=== PATIENT | female | born 1990 | race Caucasian/White ===

== ENCOUNTER 2018-04-30 17:33 | Emergency (ER) | payer MEDICAID ==
[2018-04-30 17:44] VITALS: BP 158/81
[2018-04-30] MEDS ORDERED: predniSONE 20 MG Tab PO ONE (17:45)
--- NOTE | 2018-04-30 17:47 | EDM.PDOC ---
ED HPI GENERAL MEDICAL PROBLEM - General Chief Complaint: Respiratory Problem Stated Complaint: DIFFICULTY BREATHING Time Seen by Provider: 04/30/18 17:35 Source of Information: Reports: Patient History Limitations: Reports: No Limitations - History of Present Illness INITIAL COMMENTS - FREE TEXT/NARRATIVE: History of present illness: []Patient states she felt that her lungs were inflamed yesterday and today at work progressively became more short of breath with cough. Patient also complains of mild sore throat. She states she was about to use her son's albuterol but decided to come to the ER for evaluation. Patient has had pneumonia when she was a child and was seen here 2 years ago diagnosed with pneumonitis. She denies any nausea, vomiting, diarrhea and has not had a fever. She is currently not taking any meds. Review of systems: As per history of present illness and below otherwise all systems reviewed and negative. Past medical history: As per history of present illness and as reviewed below otherwise noncontributory. Surgical history: As per history of present illness and as reviewed below otherwise noncontributory. Social history: No reported history of drug or alcohol abuse. Family history: As per history of present illness and as reviewed below otherwise noncontributory. Physical exam: General: Well developed, well nourished in no respiratory distress HEENT: Atraumatic, normocephalic, pupils reactive, negative for conjunctival pallor or scleral icterus, mucous membranes moist, throat clear, neck supple, nontender, trachea midline. Lungs: Clear to auscultation, breath sounds equal bilaterally, chest nontender. No accessory muscle use lungs are clear no wheezing noted Heart: S1S2, regular, negative for clicks, rubs, or JVD. Abdomen: Soft, nondistended, nontender. Negative for masses or hepatosplenomegaly. Negative for costovertebral tenderness. Pelvis: Stable nontender. Genitourinary: Deferred. Rectal: Deferred. Extremities: Atraumatic, negative for cords or calf pain. Neurovascular unremarkable. Neuro: Awake, alert, oriented. Cranial nerves II through XII unremarkable. Cerebellum unremarkable. Motor and sensory unremarkable throughout. Exam nonfocal. Skin:warm and dry Diagnostics: Chest x-ray negative for pneumonia Therapeutics: Prednisone ED Course: Unremarkable Impression: Bronchitis Prescriptions: Prednisone, albuterol inhaler, amoxicillin Plan: Primary care return if symptoms worsen or change. Definitive disposition and diagnosis as appropriate pending reevaluation and review of above. chest Pain Score (Numeric/FACES): 7 - Related Data Allergies Allergy/AdvReac Type Severity Reaction Status Date / Time unknown medication Allergy Rash Uncoded 04/30/18 17:39 Home Meds: Home Meds Albuterol [Ventolin HFA] 2 puff INH Q4HR PRN #1 inhaler 04/30/18 [Rx] Amoxicillin 500 mg PO TID #21 capsule 04/30/18 [Rx] predniSONE [Prednisone] 20 mg PO DAILY #5 tablet 04/30/18 [Rx] Past Medical History - Past Health History Medical/Surgical History: Denies Medical/Surgical History ED ROS GENERAL - Review of Systems Review Of Systems: ROS reveals no pertinent complaints other than HPI. ED EXAM, GENERAL - Physical Exam Exam: See Below (See history of present illness) Course - Vital Signs Last Recorded V/S: Last Vital Signs Temp 97.2 F 04/30/18 17:40 Pulse 98 04/30/18 17:40 Resp 24 H 04/30/18 17:40 BP 158/81 H 04/30/18 17:40 Pulse Ox 99 04/30/18 17:40 - Orders/Labs/Meds Orders: Active Orders 24 hr Category Date Time Status Chest 2V [CR] Stat Exams 04/30/18 17:43 Ordered Meds: Medications Discontinued Medications Generic Name Dose Route Start Last Admin Trade Name Freq PRN Reason Stop Dose Admin Prednisone 60 mg 04/30/18 17:45 Prednisone PO 04/30/18 17:46 ONETIME ONE Departure - Departure Time of Disposition: 18:06 Disposition: Home, Self-Care 01 Condition: Good Clinical Impression: Acute bronchitis Qualifiers: Bronchitis organism: unspecified organism Qualified Code(s): J20.9 - Acute bronchitis, unspecified - Discharge Information *PRESCRIPTION DRUG MONITORING PROGRAM REVIEWED*: No *COPY OF PRESCRIPTION DRUG MONITORING REPORT IN PATIENT LEONEL: No Prescriptions: Albuterol [Ventolin HFA] 2 puff INH Q4HR PRN #1 inhaler PRN Reason: Shortness Of Breath Amoxicillin 500 mg PO TID #21 capsule predniSONE [Prednisone] 20 mg PO DAILY #5 tablet Referrals: PCP,None [Primary Care Provider] - Forms: ED Department Discharge Additional Instructions: The following information is given to patients seen in the emergency department who are being discharged to home. This information is to outline your options for follow-up care. We provide all patients seen in our emergency department with a follow-up referral. The need for follow-up, as well as the timing and circumstances, are variable depending upon the specifics of your emergency department visit. If you don't have a primary care physician on staff, we will provide you with a referral. We always advise you to contact your personal physician following an emergency department visit to inform them of the circumstance of the visit and for follow-up with them and/or the need for any referrals to a consulting specialist. The emergency department will also refer you to a specialist when appropriate. This referral assures that you have the opportunity for follow-up care with a specialist. All of these measure are taken in an effort to provide you with optimal care, which includes your follow-up. Under all circumstances we always encourage you to contact your private physician who remains a resource for coordinating your care. When calling for follow-up care, please make the office aware that this follow-up is from your recent emergency room visit. If for any reason you are refused follow-up, please contact the [facility] Emergency Department at and asked to speak to the emergency department charge nurse. [facility] [address] [place], [place] [id number] - My Orders Last 24 Hours: My Active Orders 04/30/18 17:43 Chest 2V [CR] Stat - Assessment/Plan Last 24 Hours: My Active Orders 04/30/18 17:43 Chest 2V [CR] Stat
--- NOTE | 2018-05-01 10:42 | CR ---
EXAM DATE: 04/30/18 PATIENT'S AGE: 28 Patient: TAO MARRERO Facility: [place] [place] Site . Site : 1988 Study: XRay Chest [id number] 6:03:58 PM Ordering Physician: Rey Paulino Final Report: Indication: Cough x1 day. Technique: PA and lateral views the chest were obtained. Comparison: October 12, 2014. Findings: The heart is normal in size. The lungs are clear. No infiltrate, pleural effusion, or pneumothorax identified. Impression: No acute cardiopulmonary process. Dictated by Isi Lopez MD @ Apr 30 2018 6:04PM (Electronic Signature) Report Signed by Proxy. ALISSA
== END 2018-04-30 18:18 | disposition home or self-care (01) ==
LOC: MW.ED 17:33
DX: J20.9 Acute bronchitis, unspecified (principal)
CPT/HCPCS: 71046; 99284; A9270; 99282

== ENCOUNTER 2019-02-12 12:26 | Emergency (ER) | payer MEDICAID ==
--- NOTE | 2019-02-12 12:34 | EDM.PDOC ---
ED HPI GENERAL MEDICAL PROBLEM - General Chief Complaint: Flank Pain Stated Complaint: LEFT SIDE PAIN Time Seen by Provider: 02/12/19 12:33 Source of Information: Reports: Patient History Limitations: Reports: No Limitations - History of Present Illness INITIAL COMMENTS - FREE TEXT/NARRATIVE: HISTORY AND PHYSICAL: History of present illness: Patient is a 28-year-old female presents to the ED with complaint of left-sided abdominal pain. States it began a few days ago with left flank pain now radiating to her left lower quadrant. She reports she had some nausea and vomiting yesterday. She states that she is having to urinate more often but denies any dysuria or hematuria. She denies any fevers, chills, diarrhea, constipation. She had her IUD removed the beginning of December and LMP the beginning of January but uncertain of exact date. Review of systems: As per history of present illness and below otherwise all systems reviewed and negative. Past medical history: As per history of present illness and as reviewed below otherwise noncontributory. Surgical history: As per history of present illness and as reviewed below otherwise noncontributory. Social history: No reported history of drug or alcohol abuse. Family history: As per history of present illness and as reviewed below otherwise noncontributory. Physical exam: General: Patient sitting comfortably in no acute distress and nontoxic appearing HEENT: Atraumatic, normocephalic, pupils reactive, negative for conjunctival pallor or scleral icterus, mucous membranes moist, throat clear, neck supple, nontender, trachea midline. No meningeal signs. Lungs: Clear to auscultation, breath sounds equal bilaterally, chest nontender. Heart: S1S2, regular, negative for clicks, rubs, or overt murmur. Abdomen: Suprapubic and left lower quadrant tenderness to palpation. Soft, nondistended. Negative for masses or hepatosplenomegaly. Left costovertebral tenderness. No rigidity, rebound, guarding. Pelvis: Stable nontender. Genitourinary: Deferred. Rectal: Deferred. Extremities: Atraumatic, negative for cords or calf pain. Neurovascular unremarkable. Neuro: Awake, alert, oriented. Cranial nerves II through XII unremarkable. Cerebellum unremarkable. Motor and sensory unremarkable throughout. Exam nonfocal. Notes: Diagnostics: UA, UC, urine hCG Therapeutics: None Prescriptions: Cipro Impression: UTI Plan: 1. Take antibiotic as instructed. Plenty of fluids as discussed. 2. Follow up with primary care provider 3. Return to ED as needed as discussed Definitive disposition and diagnosis as appropriate pending reevaluation and review of above. Left Flank Pain Score (Numeric/FACES): 10 - Related Data Allergies Allergy/AdvReac Type Severity Reaction Status Date / Time No Known Allergies Allergy Verified 02/12/19 12:31 Home Meds: Home Meds Acetaminophen 1,000 mg PO ASDIRECTED 02/12/19 [History] Acetaminophn/Pyril Mal/Caffein [Midol Caplet] 1 each PO ASDIRECTED 02/12/19 [ History] Ciprofloxacin HCl [Cipro] 500 mg PO BID 10 Days #20 tablet 02/12/19 [Rx] Past Medical History - Past Health History Medical/Surgical History: Denies Medical/Surgical History HEENT History: Reports: Impaired Vision Other HEENT History: wears glasses Cardiovascular History: Reports: None Respiratory History: Reports: Pneumonia, Recurrent Genitourinary History: Reports: None 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: , 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 ED EXAM, GI/ABD - Physical Exam Exam: See Below (see dictation) Course - Vital Signs Last Recorded V/S: Last Vital Signs Temp 98.3 F 02/12/19 12:32 Pulse 87 02/12/19 12:32 Resp 19 02/12/19 12:32 BP 138/79 02/12/19 12:32 Pulse Ox 95 02/12/19 12:32 - Orders/Labs/Meds Orders: Active Orders 24 hr Category Date Time Status CULTURE URINE [RM] Stat Lab 02/12/19 12:41 Received Labs: Laboratory Tests 02/12/19 02/12/19 Range/Units 12:41 12:41 Urine Color YELLOW Urine Appearance CLOUDY Urine pH 6.0 (5.0-8.0) Ur Specific [place] 1.015 (1.001-1.035) Urine Protein 100 H (NEGATIVE) mg/dL Urine Glucose (UA) NEGATIVE (NEGATIVE) mg/dL Urine Ketones >=80 (NEGATIVE) mg/dL Urine Occult Blood MODERATE H (NEGATIVE) Urine Nitrite POSITIVE H (NEGATIVE) Urine Bilirubin NEGATIVE (NEGATIVE) Urine Urobilinogen 0.2 (<2.0) EU/dL Ur Leukocyte Esterase LARGE H (NEGATIVE) Urine RBC 0-3 (0-2/HPF) Urine WBC TO NUMEROUS TO COUNT H (0-5/HPF) Ur Epithelial Cells FEW (NONE-FEW) Urine Bacteria RARE (NEGATIVE) Urine Mucus LIGHT (NONE-MOD) Urine HCG, Qual NEGATIVE (NEGATIVE) Departure - Departure Time of Disposition: 13:27 Disposition: Home, Self-Care 01 Condition: Good Clinical Impression: UTI (urinary tract infection) - Discharge Information Prescriptions: Ciprofloxacin HCl [Cipro] 500 mg PO BID 10 Days #20 tablet Referrals: PCP,None [Primary Care Provider] - Forms: ED Department Discharge Additional Instructions: The following information is given to patients seen in the emergency department who are being discharged to home. This information is to outline your options for follow-up care. We provide all patients seen in our emergency department with a follow-up referral. The need for follow-up, as well as the timing and circumstances, are variable depending upon the specifics of your emergency department visit. If you don't have a primary care physician on staff, we will provide you with a referral. We always advise you to contact your personal physician following an emergency department visit to inform them of the circumstance of the visit and for follow-up with them and/or the need for any referrals to a consulting specialist. The emergency department will also refer you to a specialist when appropriate. This referral assures that you have the opportunity for follow-up care with a specialist. All of these measure are taken in an effort to provide you with optimal care, which includes your follow-up. Under all circumstances we always encourage you to contact your private physician who remains a resource for coordinating your care. When calling for follow-up care, please make the office aware that this follow-up is from your recent emergency room visit. If for any reason you are refused follow-up, please contact the [facility] Emergency Department at and asked to speak to the emergency department charge nurse. [facility] [address] [place] [id number] 1. Take antibiotic as instructed. Plenty of fluids as discussed. 2. Follow up with primary care provider 3. Return to ED as needed as discussed - My Orders Last 24 Hours: My Active Orders 02/12/19 12:41 CULTURE URINE [RM] Stat - Assessment/Plan Last 24 Hours: My Active Orders 02/12/19 12:41 CULTURE URINE [RM] Stat
[2019-02-12 13:51] VITALS: BP 148/69
== END 2019-02-12 13:45 | disposition home or self-care (01) ==
LOC: MW.ED 12:26
DX: N39.0 Urinary tract infection, site not specified (principal); Z79.899 Other long term (current) drug therapy
CPT/HCPCS: 81001; 81025; 87086; 87088; 87186; 99284

== ENCOUNTER 2019-04-11 13:31 | Emergency (ER) | payer MEDICAID ==
[2019-04-11 13:41] VITALS: BP 145/69; PULSE 71
--- NOTE | 2019-04-11 13:47 | EDM.PDOC ---
ED HPI GENERAL MEDICAL PROBLEM - General Chief Complaint: ENT Problem Stated Complaint: SICK--EAR INFECTION, COUGH Time Seen by Provider: 04/11/19 13:46 Source of Information: Reports: Patient History Limitations: Reports: No Limitations - History of Present Illness INITIAL COMMENTS - FREE TEXT/NARRATIVE: HISTORY AND PHYSICAL: History of present illness: Patient is a 28-year-old female presents to the ED with complaint of ear pain, cough and possible UTI. She states she has had a cough and wheezing x 1 week. Ear pain started a couple of days ago. Denies fevers, chills, nausea, vomiting, abdominal pain, back pain, shortness of breath. She states she had some dysuria but has been taking azo and it resolved. Review of systems: As per history of present illness and below otherwise all systems reviewed and negative. Past medical history: As per history of present illness and as reviewed below otherwise noncontributory. Surgical history: As per history of present illness and as reviewed below otherwise noncontributory. Social history: No reported history of drug or alcohol abuse. Family history: As per history of present illness and as reviewed below otherwise noncontributory. Physical exam: General: Patient sitting comfortably in no acute distress and nontoxic appearing HEENT: Left TM is erythematous and bulging with loss of light reflex and bony landmarks. Atraumatic, normocephalic, pupils reactive, negative for conjunctival pallor or scleral icterus, mucous membranes moist, throat clear, neck supple, nontender, trachea midline. No meningeal signs. Lungs: Clear to auscultation, breath sounds equal bilaterally, chest nontender. Heart: S1S2, regular, negative for clicks, rubs, or overt murmur. Abdomen: Soft, nondistended, nontender. Negative for masses or hepatosplenomegaly. Negative for costovertebral tenderness. No rigidity, rebound , guarding. Pelvis: Stable nontender. Genitourinary: Deferred. Rectal: Deferred. Extremities: Atraumatic, negative for cords or calf pain. Neurovascular unremarkable. Neuro: Awake, alert, oriented. Cranial nerves II through XII unremarkable. Cerebellum unremarkable. Motor and sensory unremarkable throughout. Exam nonfocal. Notes: Diagnostics: CXR, UA Therapeutics: [] Prescriptions: Ventolin inhaler Augmentin Impression: Acute bronchitis, left otitis media Plan: Take medications as instructed Follow up with primary care provider Return to ED as needed as discussed Definitive disposition and diagnosis as appropriate pending reevaluation and review of above. Left Ear Pain Score (Numeric/FACES): 0 - Related Data Allergies Allergy/AdvReac Type Severity Reaction Status Date / Time No Known Allergies Allergy Verified 02/12/19 12:31 Home Meds: Home Meds Albuterol [Ventolin HFA] 1 puff INH Q4H #1 inhaler 04/11/19 [Rx] Amoxicillin/Potassium Clav [Augmentin 875-125 Tablet] 1 each PO BID 7 Days #14 tablet 04/11/19 [Rx] Past Medical History - Past Health History Medical/Surgical History: Denies Medical/Surgical History HEENT History: Reports: Impaired Vision Other HEENT History: wears glasses Cardiovascular History: Reports: None Respiratory History: Reports: Pneumonia, Recurrent Genitourinary History: Reports: None 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: , 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 Musculoskeletal History: Reports: None Neurological History: Reports: None Psychiatric History: Reports: None Endocrine/Metabolic History: Reports: None Dermatologic History: Reports: Eczema - Infectious Disease History Infectious Disease History: Reports: Chicken Pox - Past Surgical History HEENT Surgical History: Reports: Adenoidectomy, Tonsillectomy GI Surgical History: Reports: Cholecystectomy Social & Family History - Family History Family Medical History: Noncontributory - Tobacco Use Smoking Status *Q: Current Every Day Smoker Years of Tobacco use: 10 Packs/Tins Daily: 0.5 - Caffeine Use Caffeine Use: Reports: Coffee, Energy Drinks, Soda, Tea - Recreational Drug Use Recreational Drug Use: No ED ROS ENT - Review of Systems Review Of Systems: ROS reveals no pertinent complaints other than HPI. ED EXAM, ENT - Physical Exam Exam: See Below (see dictation) Course - Vital Signs Last Recorded V/S: Last Vital Signs Temp 96.0 F 04/11/19 13:39 Pulse 71 04/11/19 13:39 Resp 18 04/11/19 13:39 BP 145/69 H 04/11/19 13:39 Pulse Ox 96 04/11/19 13:39 - Orders/Labs/Meds Labs: Laboratory Tests 04/11/19 04/11/19 Range/Units 13:42 13:45 Urine Color YELLOW Urine Appearance SLT CLOUDY Urine pH 5.5 (5.0-8.0) Ur Specific [place] >= 1.030 (1.001-1.035) Urine Protein NEGATIVE (NEGATIVE) mg/dL Urine Glucose (UA) NEGATIVE (NEGATIVE) mg/dL Urine Ketones NEGATIVE (NEGATIVE) mg/dL Urine Occult Blood NEGATIVE (NEGATIVE) Urine Nitrite NEGATIVE (NEGATIVE) Urine Bilirubin SMALL H (NEGATIVE) Urine Ictotest NEGATIVE Urine Urobilinogen 0.2 (<2.0) EU/dL Ur Leukocyte Esterase NEGATIVE (NEGATIVE) Urine HCG, Qual NEGATIVE (NEGATIVE) Departure - Departure Time of Disposition: 15:23 Disposition: Home, Self-Care 01 Condition: Good Clinical Impression: Left otitis media Acute bronchitis Qualifiers: Bronchitis organism: unspecified organism Qualified Code(s): J20.9 - Acute bronchitis, unspecified - Discharge Information Prescriptions: Albuterol [Ventolin HFA] 1 puff INH Q4H #1 inhaler Amoxicillin/Potassium Clav [Augmentin 875-125 Tablet] 1 each PO BID 7 Days #14 tablet Instructions: Otitis Media, Adult, [id number], Acute Bronchitis, Adult, Easy- to-Read Referrals: Cheo Thurston MD [Primary Care Provider] - Forms: ED Department Discharge Additional Instructions: The following information is given to patients seen in the emergency department who are being discharged to home. This information is to outline your options for follow-up care. We provide all patients seen in our emergency department with a follow-up referral. The need for follow-up, as well as the timing and circumstances, are variable depending upon the specifics of your emergency department visit. If you don't have a primary care physician on staff, we will provide you with a referral. We always advise you to contact your personal physician following an emergency department visit to inform them of the circumstance of the visit and for follow-up with them and/or the need for any referrals to a consulting specialist. The emergency department will also refer you to a specialist when appropriate. This referral assures that you have the opportunity for follow-up care with a specialist. All of these measure are taken in an effort to provide you with optimal care, which includes your follow-up. Under all circumstances we always encourage you to contact your private physician who remains a resource for coordinating your care. When calling for follow-up care, please make the office aware that this follow-up is from your recent emergency room visit. If for any reason you are refused follow-up, please contact the [facility] Emergency Department at and asked to speak to the emergency department charge nurse. [facility] [address] [place] [id number] [id number] Take medications as instructed Follow up with primary care provider Return to ED as needed as discussed
--- NOTE | 2019-04-11 15:19 | CR ---
Shortness of breath Portable chest Comparison chest x-ray 04/30/2018 Findings: Normal cardiac mediastinal silhouette. No acute airspace or interstitial process. No effusion or pneumothorax. Dictated by Nan Blum MD @ Apr 11 2019 3:16PM Signed by Dr. Nan Blum @ Apr 11 2019 3:18PM
== END 2019-04-11 16:44 | disposition home or self-care (01) ==
LOC: MW.ED 13:31
DX: J20.9 Acute bronchitis, unspecified (principal); H66.92 Otitis media, unspecified, left ear; F17.210 Nicotine dependence, cigarettes, uncomplicated; Z98.890 Other specified postprocedural states
CPT/HCPCS: 71045; 71045-26; 81003; 81025; 99282; 99283-25

== ENCOUNTER 2020-01-18 01:04 | Inpatient (IN) | payer MEDICAID ==
[2020-01-18] MEDS ORDERED: Sodium Chloride 0.9% 10 ML SDV IV PRN (17:43)
[2020-01-18] MEDS ORDERED: Misoprostol 200 MCG Tab PO PRN (17:43)
[2020-01-18] MEDS ORDERED: Tranexamic Acid 1,000 MG in Sodium Chloride 0.9% 100 ML IV PRN (17:43)
[2020-01-18] MEDS ORDERED: Sodium Chloride 0.9% 2.5 ML Syringe FLUSH PRN (17:43)
[2020-01-18] MEDS ORDERED: Water For Irrigation,Sterile 1,000 ML Container IRR PRN (17:43)
[2020-01-18] MEDS ORDERED: Methylergonovine 0.2 MG/1 ML Amp IM PRN (17:43)
[2020-01-18] MEDS ORDERED: Lidocaine 1% 50 ML MDV INJECT PRN (17:43)
[2020-01-18] MEDS ORDERED: Ondansetron 4 MG/2 ML SDV IVPUSH PRN (17:43)
[2020-01-18] MEDS ORDERED: Sodium Chloride 0.9% 10 ML Syringe FLUSH PRN (17:43)
[2020-01-18] MEDS ORDERED: Carboprost Tromethamine 250 MCG/1 ML Amp IM PRN (17:43)
[2020-01-18] MEDS ORDERED: Butorphanol 1 MG/ML SDV IVPUSH PRN (17:43)
[2020-01-18] MEDS ORDERED: Nalbuphine 10 MG/1 ML Vial IVPUSH PRN (17:43)
[2020-01-18] MEDS ORDERED: Oxytocin/0.9 % Sodium Chloride 30 UNIT/500 ML BAG IV SCH ×2 (17:45→18:45)
--- NOTE | 2020-01-18 17:46 | US ---
Limited obstetrical ultrasound: Multiple real-time images were obtained transabdominally. presentation: Cephalic Placenta: Anterior and to the right side Amniotic fluid: DENNIS 3.37 cm compatible with ruptured amniotic sac Impression: 1. Cephalic presentation. Diagnostic code #1 Study was dictated in MDT
--- NOTE | 2020-01-18 18:04 | PCM.LDHP ---
L&D History of Present Illness - General Date of Service: 01/18/20 Admit Problem/Dx: Patient Status Order with Admit Dx/Problem 01/18/20 15:40 Patient Status [ADT] Routine 01/18/20 17:44 Patient Status [ADT] Routine Admission Diagnosis/Problem Admission Diagnosis/Problem - planned 01/18/20 18:01 presenting with complaints of leaking fluid; amnisure positive; SVE 4 cm/90%/-3, soft, posterior per nurse report; A+, rubella immune, GBS negative; will admit for labor Source of Information: Patient History Limitations: Reports: No Limitations - Related Data Allergies/Adverse Reactions: Allergies Allergy/AdvReac Type Severity Reaction Status Date / Time No Known Allergies Allergy Verified 02/12/19 12:31 Home Medications: Home Meds Albuterol [Ventolin HFA] 1 puff INH Q4H #1 inhaler 04/11/19 [Rx] Amoxicillin/Potassium Clav [Augmentin 875-125 Tablet] 1 each PO BID 7 Days #14 tablet 04/11/19 [Rx] Past Medical History - Past Health History Medical/Surgical History: Denies Medical/Surgical History HEENT History: Reports: Impaired Vision Other HEENT History: wears glasses Cardiovascular History: Reports: None Respiratory History: Reports: Pneumonia, Recurrent Genitourinary History: Reports: None 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: , 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 Musculoskeletal History: Reports: None Neurological History: Reports: None Psychiatric History: Reports: None Endocrine/Metabolic History: Reports: None Dermatologic History: Reports: Eczema - Infectious Disease History Infectious Disease History: Reports: Chicken Pox - Past Surgical History HEENT Surgical History: Reports: Adenoidectomy, Tonsillectomy GI Surgical History: Reports: Cholecystectomy Social & Family History - Family History Family Medical History: Noncontributory - Caffeine Use Caffeine Use: Reports: Coffee, Energy Drinks, Soda, Tea H&P Review of Systems - Review of Systems: Review Of Systems: See Below General: Reports: No Symptoms HEENT: Reports: No Symptoms Pulmonary: Reports: No Symptoms Cardiovascular: Reports: No Symptoms Gastrointestinal: Reports: No Symptoms Genitourinary: Reports: No Symptoms Musculoskeletal: Reports: No Symptoms Skin: Reports: No Symptoms Psychiatric: Reports: No Symptoms Neurological: Reports: No Symptoms Hematologic/Lymphatic: Reports: No Symptoms Immunologic: Reports: No Symptoms L&D Exam - Exam Exam: See Below - OB Specific Contraction Intensity: Mild Movement: Active Heart Tones: Present Heart Rate (FHR) Variability: Moderate (6-25 bmp) Presentation: Vertex - Ramos Score Ramos Score Cervix Position: Posterior Ramos Score Consistency: Soft Ramos Score Effacement: >80% Ramos Score Dilation: 3-4 cm Ramos Score 's Station: -3 Ramos Score Total: 7 - Exam General: Alert, Oriented, Cooperative Lungs: Normal Respiratory Effort Cardiovascular: Regular Rate, Regular Rhythm GI/Abdominal Exam: Soft, Non-Tender Rectal Exam: Deferred Genitourinary: Deferred Back Exam: Normal Inspection, Full Range of Motion Extremities: Normal Inspection, Normal Range of Motion, Non-Tender, Normal Capillary Refill Skin: Warm, Dry, Intact Neurological: Normal Speech, Normal Tone, Sensation Intact Psychiatric: Alert, Normal Affect, Normal Mood - Patient Data Lab Results Last 24 hrs: Laboratory Results - last 24 hr 01/18/20 Range/Units 16:15 Membrane Rupture POSITIVE - Problem List (1) Supervision of normal IUP (intrauterine ) in multigravida SNOMED Code(s): 702709809, 812662169, 297154870 ICD Code: Z34.80 - ENCOUNTER FOR SUPRVSN OF NORMAL , UNSP TRIMESTER Status: Acute Priority: High Current Visit: Yes Qualifiers: Trimester: third trimester Qualified Code(s): Z34.83 - Encounter for supervision of other normal , third trimester Problem List Initiated/Reviewed/Updated: Yes Orders Last 24hrs: Active Orders 24 hr Category Date Time Status Patient Status [ADT] Routine ADT 01/18/20 17:44 Active Heart Tones [RC] CONTINUOUS Care 01/18/20 17:44 Active Non Stress Test [RC] PER UNIT ROUTINE Care 01/18/20 16:09 Active Non Stress Test [RC] PER UNIT ROUTINE Care 01/18/20 17:44 Active May Shower [RC] ASDIRECTED Care 01/18/20 17:44 Active Notify Provider [RC] PRN Care 01/18/20 17:44 Active Up ad Julianna [RC] ASDIRECTED Care 01/18/20 16:09 Active Up ad Julianna [RC] ASDIRECTED Care 01/18/20 17:44 Active Vaginal Exam [RC] Click to Edit Care 01/18/20 16:09 Active Vaginal Exam [RC] PRN Care 01/18/20 17:44 Active Vital Signs [RC] PER UNIT ROUTINE Care 01/18/20 16:09 Active Vital Signs [RC] PER UNIT ROUTINE Care 01/18/20 17:44 Active CBC W/O DIFF,HEMOGRAM [HEME] Routine Lab 01/18/20 17:44 Ordered RPR (SYPHILIS SERO) W/ RFLX [REF] Routine Lab 01/18/20 17:44 Ordered TYPE AND SCREEN [BBK] Routine Lab 01/18/20 17:44 Ordered Butorphanol [Stadol] Med 01/18/20 17:43 Active 1 mg IVPUSH Q1H PRN Carboprost Tromethamine [Hemabate DS] Med 01/18/20 17:43 Active 250 mcg IM ASDIRECTED PRN Lactated Ringers [Ringers, Lactated] 1,000 ml Med 01/18/20 17:45 Active IV ASDIRECTED Lidocaine 1% [Xylocaine 1%] Med 01/18/20 17:43 Active 50 ml INJECT ONETIME PRN Methylergonovine [Methergine] Med 01/18/20 17:43 Active 0.2 mg IM ASDIRECTED PRN Nalbuphine [Nubain] Med 01/18/20 17:43 Active 10 mg IVPUSH Q1H PRN Ondansetron [Zofran] Med 01/18/20 17:43 Active 4 mg IVPUSH Q6H PRN Oxytocin/0.9 % Sodium Chloride [Oxytocin 30 Unit/500 ML Med 01/18/20 17:45 Active -NS] 30 unit in 500 ml IV TITRATE Sodium Chloride 0.9% [Normal Saline] Med 01/18/20 17:43 Active 10 ml IV ASDIRECTED PRN Sodium Chloride 0.9% [Saline Flush] Med 01/18/20 17:43 Active 10 ml FLUSH ASDIRECTED PRN Sodium Chloride 0.9% [Saline Flush] Med 01/18/20 17:43 Active 2.5 ml FLUSH ASDIRECTED PRN Tranexamic Acid [Cyklokapron] 1,000 mg Med 01/18/20 17:43 Active Sodium Chloride 0.9% [Normal Saline] 100 ml IV ONETIME Water For Irrigation,Sterile [Sterile Water for Med 01/18/20 17:43 Active Irrigation] 1,000 ml IRR ASDIRECTED PRN miSOPROStoL [Cytotec] Med 01/18/20 17:43 Active 200 mcg PO ONETIME PRN Scalp Electrode [WOMSER] Per Unit Routine Oth 01/18/20 17:44 Ordered Peripheral IV Insertion Adult [OM.PC] Routine Oth 01/18/20 17:44 Ordered Resuscitation Status Routine Resus Stat 01/18/20 16:09 Ordered Medication Orders Butorphanol Tartrate (Stadol) 1 mg IVPUSH Q1H PRN PRN Reason: Pain Carboprost Tromethamine (Hemabate Ds) 250 mcg IM ASDIRECTED PRN PRN Reason: Post Hemorrhage Lactated Ringer's (Ringers, Lactated) 1,000 mls @ 150 mls/hr IV ASDIRECTED SHAVONNE Oxytocin/Sodium Chloride (Oxytocin 30 Unit/500 Ml-Ns) 30 unit in 500 mls @ 999 mls/hr IV TITRATE SHAVONNE Tranexamic Acid 1,000 mg/ (Sodium Chloride) 110 mls @ 660 mls/hr IV ONETIME PRN PRN Reason: Bleeding Lidocaine HCl (Xylocaine 1%) 50 ml INJECT ONETIME PRN PRN Reason: Laceration repair Methylergonovine Maleate (Methergine) 0.2 mg IM ASDIRECTED PRN PRN Reason: Post Hemorrhage Misoprostol (Cytotec) 200 mcg PO ONETIME PRN PRN Reason: Post Hemorrhage Nalbuphine HCl (Nubain) 10 mg IVPUSH Q1H PRN PRN Reason: Pain (severe 7-10) Ondansetron HCl (Zofran) 4 mg IVPUSH Q6H PRN PRN Reason: Nausea/Vomiting Sodium Chloride (Saline Flush) 10 ml FLUSH ASDIRECTED PRN PRN Reason: Keep Vein Open Sodium Chloride (Saline Flush) 2.5 ml FLUSH ASDIRECTED PRN PRN Reason: Keep Vein Open Sodium Chloride (Normal Saline) 10 ml IV ASDIRECTED PRN PRN Reason: IV Use Sterile Water (Sterile Water For Irrigation) 1,000 ml IRR ASDIRECTED PRN PRN Reason: delivery Assessment/Plan Comment:: Admit A: presenting with complaints of leaking fluid; amnisure positive; SVE 4 cm/90%/-3, soft, posterior per nurse report; A+, rubella immune, GBS negative; will admit for labor P: Anticipate ; epidural PRN; Dr. Jose A rodas
[2020-01-18] MEDS ORDERED: Terbutaline 1 MG/ML SDV SUBCUT PRN (18:35)
[2020-01-18] MEDS: Lactated Ringers 1,000 ML IV SCH ×3 (18:50→20:49)
[2020-01-18] MEDS ORDERED: Ropivacaine HCl/PF 100 ML ONE (20:22)
[2020-01-18] MEDS ORDERED: fentaNYL 100 MCG/2 ML SDV ONE (20:23)
--- NOTE | 2020-01-19 01:28 | PCM.DEL ---
L & D Note - General Info Date of Service: 01/19/20 Mother's Due Date: 01/17/20 - Delivery Note Labor: Spontaneous, Augmented by Oxytocin Cervical Ripening Method: Oxytocin Delivery Outcome: Livebirth Delivery Method: Spontaneous Vaginal Delivery-Single Presentation: Vertex Nuchal Cord: Present, Reduced (x1) Anesthesia Type: Epidural Amniotic Fluid Description: Meconium Stained Episiotomy Type: None Laceration: None Placenta: Intact, Spontaneous Cord: 3 Vessels Estimated Blood Loss: 150 Resuscitation Needed: No Score 1 min: 7 Score 5 min: 9 Second Stage Interventions: Reports: Second Nurse Assessed Progress of Descent, Second Nurse Reviewed Contraction Pattern, Second Nurse Reviewed Heart Tones, Encouragement Given, Pushing Effectively, Pushing, Stirrups/Leg Supports Delivery Comments (Free Text/Narrative):: at 40 2/7 weeks; meconium-stained fluid, cardiothoracic anesthesia technician called for delivery; epidural for pain relief; viable male; head delivered with good pushing; nuchal x1, reduced; baby to mom's abdomen [id number] for assessment; cord doubly clamped, cut by grandmother of baby after approximately 60 seconds; baby to warmer for assessment; APGARs 7/9; weight: 8 lb 14 oz; placenta delivered grossly intact; 3VC; EBL 150 mL; pitocin to IVF; perineum intact; fundus firm; mom and baby left in stable condition with nurse at bedside for assessment - General Info Date of Service: 01/19/20 Admission Dx/Problem (Free Text): Patient Status Order with Admit Dx/Problem 01/18/20 15:40 Patient Status [ADT] Routine 01/18/20 17:44 Patient Status [ADT] Routine Admission Diagnosis/Problem Admission Diagnosis/Problem - planned 01/18/20 18:01 presenting with complaints of leaking fluid; amnisure positive; SVE 4 cm/90%/-3, soft, posterior per nurse report; A+, rubella immune, GBS negative; will admit for labor Functional Status: Reports: Pain Controlled - Review of Systems General: Reports: No Symptoms HEENT: Reports: No Symptoms Pulmonary: Reports: No Symptoms Cardiovascular: Reports: No Symptoms Gastrointestinal: Reports: No Symptoms Genitourinary: Reports: No Symptoms Musculoskeletal: Reports: No Symptoms Skin: Reports: No Symptoms Neurological: Reports: No Symptoms Psychiatric: Reports: No Symptoms - Patient Data Weight - Most Recent: 230 lb 3 oz Lab Results Last 24 Hours: Laboratory Results - last 24 hr 01/18/20 01/18/20 01/18/20 Range/Units 16:05 16:05 16:15 WBC 12.68 H (4.0-11.0) K/uL RBC 3.98 L (4.30-5.90) M/uL Hgb 11.9 L (12.0-16.0) g/dL Hct 35.3 L (36.0-46.0) % MCV 88.7 (80.0-98.0) fL MCH 29.9 (27.0-32.0) pg MCHC 33.7 (31.0-37.0) g/dL RDW Std Deviation 42.2 (28.0-62.0) fl RDW Coeff of Adan 13 (11.0-15.0) % Plt Count 228 (150-400) K/uL MPV 9.60 (7.40-12.00) fL Nucleated RBC % 0.0 /100WBC Nucleated RBCs # 0 K/uL Membrane Rupture POSITIVE Blood Type A POSITIVE Antibody Screen NEGATIVE Med Orders - Current: Current Medications Butorphanol Tartrate (Stadol) 1 mg IVPUSH Q1H PRN PRN Reason: Pain Carboprost Tromethamine (Hemabate Ds) 250 mcg IM ASDIRECTED PRN PRN Reason: Post Hemorrhage Lactated Ringer's (Ringers, Lactated) 1,000 mls @ 150 mls/hr IV ASDIRECTED SHAVONNE Last Admin: 01/18/20 20:49 Dose: 150 mls/hr Documented by: Oxytocin/Sodium Chloride (Oxytocin 30 Unit/500 Ml-Ns) 30 unit in 500 mls @ 999 mls/hr IV TITRATE SHAVONNE Tranexamic Acid 1,000 mg/ (Sodium Chloride) 110 mls @ 660 mls/hr IV ONETIME PRN PRN Reason: Bleeding Oxytocin/Sodium Chloride (Oxytocin 30 Unit/500 Ml-Ns) 30 unit in 500 mls @ 2 mls/hr IV TITRATE SHAVONNE; Protocol Last Titration: 01/18/20 22:15 Dose: 4 munits/min, 4 mls/hr Documented by: Lidocaine HCl (Xylocaine 1%) 50 ml INJECT ONETIME PRN PRN Reason: Laceration repair Methylergonovine Maleate (Methergine) 0.2 mg IM ASDIRECTED PRN PRN Reason: Post Hemorrhage Misoprostol (Cytotec) 200 mcg PO ONETIME PRN PRN Reason: Post Hemorrhage Nalbuphine HCl (Nubain) 10 mg IVPUSH Q1H PRN PRN Reason: Pain (severe 7-10) Ondansetron HCl (Zofran) 4 mg IVPUSH Q6H PRN PRN Reason: Nausea/Vomiting Sodium Chloride (Saline Flush) 10 ml FLUSH ASDIRECTED PRN PRN Reason: Keep Vein Open Sodium Chloride (Saline Flush) 2.5 ml FLUSH ASDIRECTED PRN PRN Reason: Keep Vein Open Sodium Chloride (Normal Saline) 10 ml IV ASDIRECTED PRN PRN Reason: IV Use Sterile Water (Sterile Water For Irrigation) 1,000 ml IRR ASDIRECTED PRN PRN Reason: delivery Terbutaline Sulfate (Brethine) 0.25 mg SUBCUT ASDIRECTED PRN PRN Reason: Tacysystole Discontinued Medications Fentanyl (Sublimaze) Confirm Administered Dose 100 mcg .ROUTE .STK-MED ONE Stop: 01/18/20 20:24 Ropivacaine (Naropin 0.2%) Confirm Administered Dose 100 mls @ as directed .ROUTE .STK-MED ONE Stop: 01/18/20 20:23 - Exam General: Alert, Oriented, Cooperative, No Acute Distress Lungs: Normal Respiratory Effort Cardiovascular: Regular Rate, Regular Rhythm GI/Abdominal Exam: Soft, Non-Tender (Female) Exam: Normal External Exam Back Exam: Normal Inspection Extremities: Normal Inspection, Normal Capillary Refill Skin: Warm, Dry, Intact Neurological: No New Focal Deficit, Normal Speech, Normal Tone Psy/Mental Status: Alert, Normal Affect, Normal Mood - Problem List & Annotations (1) Supervision of normal IUP (intrauterine ) in multigravida SNOMED Code(s): 587827854, 470129989, [id number] Code(s): Z34.80 - ENCOUNTER FOR SUPRVSN OF NORMAL , UNSP TRIMESTER Status: Acute Priority: High Current Visit: Yes Qualifiers: Trimester: third trimester Qualified Code(s): Z34.83 - Encounter for supervision of other normal , third trimester (2) (spontaneous vaginal delivery) SNOMED Code(s): 726656419 Code(s): O80 - ENCOUNTER FOR FULL-TERM UNCOMPLICATED DELIVERY Status: Acute Priority: High Current Visit: Yes - Problem List Review Problem List Initiated/Reviewed/Updated: Yes - My Orders Last 24 Hours: My Active Orders 01/18/20 Dinner Clear Liquid Diet [DIET] 01/18/20 16:05 RPR (SYPHILIS SERO) W/ RFLX [REF] Routine 01/18/20 16:09 Up ad Julianna [RC] ASDIRECTED Vital Signs [RC] PER UNIT ROUTINE Resuscitation Status Routine 01/18/20 17:01 Patient Status [ADT] Routine 01/18/20 17:43 Butorphanol [Stadol] 1 mg IVPUSH Q1H PRN Carboprost Tromethamine [Hemabate DS] 250 mcg IM ASDIRECTED PRN Lidocaine 1% [Xylocaine 1%] 50 ml INJECT ONETIME PRN Methylergonovine [Methergine] 0.2 mg IM ASDIRECTED PRN Nalbuphine [Nubain] 10 mg IVPUSH Q1H PRN Ondansetron [Zofran] 4 mg IVPUSH Q6H PRN Sodium Chloride 0.9% [Normal Saline] 10 ml IV ASDIRECTED PRN Sodium Chloride 0.9% [Saline Flush] 10 ml FLUSH ASDIRECTED PRN Sodium Chloride 0.9% [Saline Flush] 2.5 ml FLUSH ASDIRECTED PRN Tranexamic Acid [Cyklokapron] 1,000 mg Sodium Chloride 0.9% [Normal Saline] 100 ml IV ONETIME Water For Irrigation,Sterile [Sterile Water for Irrigation] 1,000 ml IRR ASDIRECTED PRN miSOPROStoL [Cytotec] 200 mcg PO ONETIME PRN 01/18/20 17:44 Heart Tones [RC] CONTINUOUS May Shower [RC] ASDIRECTED Notify Provider [RC] PRN Vital Signs [RC] PER UNIT ROUTINE Scalp Electrode [WOMSER] Per Unit Routine Peripheral IV Insertion Adult [OM.PC] Routine 01/18/20 17:45 Lactated Ringers [Ringers, Lactated] 1,000 ml IV ASDIRECTED Oxytocin/0.9 % Sodium Chloride [Oxytocin 30 Unit/500 ML-NS] 30 unit in 500 ml IV TITRATE 01/18/20 18:35 Bedrest Bathroom Privileges [RC] ASDIRECTED Notify Provider [RC] PRN Notify Provider [RC] PRN Notify Provider [RC] STAT Oxygen Therapy [RC] ASDIRECTED Vital Signs [RC] PER UNIT ROUTINE Terbutaline [Brethine] 0.25 mg SUBCUT ASDIRECTED PRN 01/18/20 18:45 Oxytocin/0.9 % Sodium Chloride [Oxytocin 30 Unit/500 ML-NS] 30 unit in 500 ml IV TITRATE Medication Administration Instruction [OM.PC] Q3H - Plan Plan:: Admit A: presenting with complaints of leaking fluid; amnisure positive; SVE 4 cm/90%/-3, soft, posterior per nurse report; A+, rubella immune, GBS negative; will admit for labor P: Anticipate ; epidural PRN; Dr. Naranjo updated Delivery A: viable male; meconium-stained fluid, cardiothoracic anesthesia technician called for delivery; epidural for pain relief; head delivered with good pushing; nuchal x1, reduced; baby to mom's abdomen [id number] for assessment; cord doubly clamped, cut by grandmother of baby after approximately 60 seconds; baby to warmer for assessment; APGARs 7/9; weight: 8 lb 14 oz; placenta delivered grossly intact; [place]; 3VC; EBL 150 mL; pitocin to IVF; perineum intact; fundus firm; mom and baby left in stable condition with nurse at bedside for assessme P:Routine plan of care; Dr. Naranjo updated.
[2020-01-19] MEDS ORDERED: oxyCODONE 5 MG Tab PO PRN (01:30)
[2020-01-19] MEDS ORDERED: Ibuprofen 400 MG Tab PO PRN (01:30)
[2020-01-19] MEDS ORDERED: Acetaminophen 500 MG Tab PO PRN ×2 (01:30)
[2020-01-19] MEDS ORDERED: Benzocaine/Menthol 20%-0.5% Spray 78 GM Cannister TOP PRN (01:30)
[2020-01-19] MEDS ORDERED: Lanolin 100% Cream 7 GM Tube TOP PRN (01:30)
[2020-01-19] MEDS ORDERED: Bisacodyl 10 MG Supp RECTAL PRN (01:30)
[2020-01-19] MEDS ORDERED: Witch Hazel Medicated Pads 40/Jar TOP PRN (01:30)
[2020-01-19] MEDS ORDERED: Docusate Sodium 100 MG Cap PO PRN (01:30)
[2020-01-19] MEDS ORDERED: Oxytocin/0.9 % Sodium Chloride 30 UNIT/500 ML BAG ONE (02:04)
--- NOTE | 2020-01-19 07:32 | PCM.PREANE ---
Preanesthetic Assessment - Anesthesia/Transfusion/Family Hx Anesthesia History: Prior Anesthesia Without Reaction Family History of Anesthesia Reaction: No Transfusion History: No Prior Transfusion(s) Type of Transfusion Reactions: Reports: Unknown Intubation History: Unknown - Review of Systems General: No Symptoms Pulmonary: No Symptoms Cardiovascular: No Symptoms Gastrointestinal: No Symptoms Neurological: No Symptoms Other: Reports: None - Physical Assessment Vital Signs: Last Vital Signs Temp 36.6 C 01/19/20 03:54 Pulse 70 01/19/20 03:54 Resp 18 01/19/20 03:54 BP 122/64 01/19/20 03:54 Pulse Ox 99 01/19/20 03:54 Height: 5 ft 6 in Weight: 104.411 kg ASA Class: 2 Mental Status: Alert & Oriented x3 Airway Class: Mallampati = 1 Dentition: Reports: Normal Dentition Thyro-Mental Finger Breadths: 3 Mouth Opening Finger Breadths: 3 ROM/Head Extension: Full Lungs: Clear to Auscultation, Normal Respiratory Effort Cardiovascular: Regular Rate, Regular Rhythm - Lab Values: Laboratory Last Values WBC 12.68 K/uL (4.0-11.0) H 01/18/20 16:05 RBC 3.98 M/uL (4.30-5.90) L 01/18/20 16:05 Hgb 11.9 g/dL (12.0-16.0) L 01/18/20 16:05 Hct 35.3 % (36.0-46.0) L 01/18/20 16:05 MCV 88.7 fL (80.0-98.0) 01/18/20 16:05 MCH 29.9 pg (27.0-32.0) 01/18/20 16:05 MCHC 33.7 g/dL (31.0-37.0) 01/18/20 16:05 RDW Std Deviation 42.2 fl (28.0-62.0) 01/18/20 16:05 RDW Coeff of Adan 13 % (11.0-15.0) 01/18/20 16:05 Plt Count 228 K/uL (150-400) 01/18/20 16:05 MPV 9.60 fL (7.40-12.00) 01/18/20 16:05 Nucleated RBC % 0.0 /100WBC 01/18/20 16:05 Nucleated RBCs # 0 K/uL 01/18/20 16:05 Membrane Rupture POSITIVE 01/18/20 16:15 Blood Type A POSITIVE 01/18/20 16:05 Antibody Screen NEGATIVE 01/18/20 16:05 - Allergies Allergies/Adverse Reactions: Allergies Allergy/AdvReac Type Severity Reaction Status Date / Time No Known Allergies Allergy Verified 02/12/19 12:31 - Blood Blood Available: No - Anesthesia Plan Pre-Op Medication Ordered: None - Acknowledgements Anesthesia Type Planned: Epidural Pt an Appropriate Candidate for the Planned Anesthesia: Yes Alternatives and Risks of Anesthesia Discussed w Pt/Guardian: Yes Pt/Guardian Understands and Agrees with Anesthesia Plan: Yes PreAnesthesia Questionnaire - Past Health History Medical/Surgical History: Denies Medical/Surgical History HEENT History: Reports: Impaired Vision Other HEENT History: wears glasses Cardiovascular History: Reports: None Respiratory History: Reports: Pneumonia, Recurrent Gastrointestinal History: Reports: None Genitourinary History: Reports: None MILIEU COORDINATOR History: Reports: , Spontaneous Musculoskeletal History: Reports: None Neurological History: Reports: None Psychiatric History: Reports: None Endocrine/Metabolic History: Reports: None Hematologic History: Reports: None Immunologic History: Reports: None Oncologic (Cancer) History: Reports: None Dermatologic History: Reports: Eczema - Infectious Disease History Infectious Disease History: Reports: Chicken Pox - Past Surgical History HEENT Surgical History: Reports: Adenoidectomy, Tonsillectomy GI Surgical History: Reports: Cholecystectomy - SUBSTANCE USE Smoking Status *Q: Current Every Day Smoker Second Hand Smoke Exposure: Yes Recreational Drug Use History: Yes Recreational Drug Type: Reports: Marijuana/Hashish - HOME MEDS Home Medications: Home Meds Albuterol [Ventolin HFA] 1 puff INH Q4H #1 inhaler 04/11/19 [Rx] Amoxicillin/Potassium Clav [Augmentin 875-125 Tablet] 1 each PO BID 7 Days #14 tablet 04/11/19 [Rx] - CURRENT (IN HOUSE) MEDS Current Meds: Current Medications Acetaminophen (Tylenol Extra Strength) 500 mg PO Q4H PRN PRN Reason: Pain Acetaminophen (Tylenol Extra Strength) 1,000 mg PO Q4H PRN PRN Reason: Pain Benzocaine/Menthol (Dermoplast Pain Relief 20%-0.5% [place]) 78 gm TOP ASDIRECTED PRN PRN Reason: Perineal Comfort Measure Bisacodyl (Dulcolax) 10 mg RECTAL ONETIME PRN PRN Reason: Constipation Docusate Sodium (Colace) 100 mg PO BID PRN PRN Reason: Constipation Emollient Ointment (Lansinoh Hpa) 0 gm TOP ASDIRECTED PRN PRN Reason: Sore Nipples Ibuprofen (Motrin) 400 mg PO Q4H PRN PRN Reason: Pain Ibuprofen (Motrin) 800 mg PO Q6H PRN PRN Reason: Pain Oxycodone HCl (Oxycodone) 5 mg PO Q2H PRN PRN Reason: Pain Witch Che (Tucks) 1 pad TOP ASDIRECTED PRN PRN Reason: comfort care Discontinued Medications Butorphanol Tartrate (Stadol) 1 mg IVPUSH Q1H PRN PRN Reason: Pain Carboprost Tromethamine (Hemabate Ds) 250 mcg IM ASDIRECTED PRN PRN Reason: Post Hemorrhage Fentanyl (Sublimaze) Confirm Administered Dose 100 mcg .ROUTE .STK-MED ONE Stop: 01/18/20 20:24 Lactated Ringer's (Ringers, Lactated) 1,000 mls @ 150 mls/hr IV ASDIRECTED SHAVONNE Last Admin: 01/18/20 20:49 Dose: 150 mls/hr Documented by: Oxytocin/Sodium Chloride (Oxytocin 30 Unit/500 Ml-Ns) 30 unit in 500 mls @ 999 mls/hr IV TITRATE SHAVONNE Tranexamic Acid 1,000 mg/ (Sodium Chloride) 110 mls @ 660 mls/hr IV ONETIME PRN PRN Reason: Bleeding Oxytocin/Sodium Chloride (Oxytocin 30 Unit/500 Ml-Ns) 30 unit in 500 mls @ 2 mls/hr IV TITRATE SHAVONNE; Protocol Last Titration: 01/18/20 22:15 Dose: 4 munits/min, 4 mls/hr Documented by: Ropivacaine (Naropin 0.2%) Confirm Administered Dose 100 mls @ as directed .ROUTE .STK-MED ONE Stop: 01/18/20 20:23 Oxytocin/Sodium Chloride (Oxytocin 30 Unit/500 Ml-Ns) Confirm Administered Dose 30 unit in 500 mls @ as directed .ROUTE .STK-MED ONE Stop: 01/19/20 02:05 Lidocaine HCl (Xylocaine 1%) 50 ml INJECT ONETIME PRN PRN Reason: Laceration repair Methylergonovine Maleate (Methergine) 0.2 mg IM ASDIRECTED PRN PRN Reason: Post Hemorrhage Misoprostol (Cytotec) 200 mcg PO ONETIME PRN PRN Reason: Post Hemorrhage Nalbuphine HCl (Nubain) 10 mg IVPUSH Q1H PRN PRN Reason: Pain (severe 7-10) Ondansetron HCl (Zofran) 4 mg IVPUSH Q6H PRN PRN Reason: Nausea/Vomiting Sodium Chloride (Saline Flush) 10 ml FLUSH ASDIRECTED PRN PRN Reason: Keep Vein Open Sodium Chloride (Saline Flush) 2.5 ml FLUSH ASDIRECTED PRN PRN Reason: Keep Vein Open Sodium Chloride (Normal Saline) 10 ml IV ASDIRECTED PRN PRN Reason: IV Use Sterile Water (Sterile Water For Irrigation) 1,000 ml IRR ASDIRECTED PRN PRN Reason: delivery Terbutaline Sulfate (Brethine) 0.25 mg SUBCUT ASDIRECTED PRN PRN Reason: Tacysystole
--- NOTE | 2020-01-19 09:33 | PCM48HPAN ---
Post Anesthesia Note - EVALUATION WITHIN 48HRS OF ANESTHETIC Vital Signs in Normal Range: Yes Patient Participated in Evaluation: Yes Respiratory Function Stable: Yes Airway Patent: Yes Cardiovascular Function Stable: Yes Hydration Status Stable: Yes Pain Control Satisfactory: Yes Nausea and Vomiting Control Satisfactory: Yes Mental Status Recovered: Yes Vital Signs: Last Vital Signs Temp 36.6 C 01/19/20 03:54 Pulse 70 01/19/20 03:54 Resp 18 01/19/20 03:54 BP 122/64 01/19/20 03:54 Pulse Ox 99 01/19/20 03:54
[2020-01-19] MEDS: Ibuprofen 800 MG Tab PO PRN ×2 (10:21→16:12)
--- NOTE | 2020-01-19 19:05 | PCM.PNPP ---
- General Info Date of Service: 01/19/20 Admission Dx/Problem (Free Text): Patient Status Order with Admit Dx/Problem 01/18/20 15:40 Patient Status [ADT] Routine 01/18/20 17:44 Patient Status [ADT] Routine Admission Diagnosis/Problem Admission Diagnosis/Problem - planned 01/18/20 18:01 presenting with complaints of leaking fluid; amnisure positive; SVE 4 cm/90%/-3, soft, posterior per nurse report; A+, rubella immune, GBS negative; will admit for labor Functional Status: Reports: Pain Controlled, Tolerating Diet, Ambulating, Urinating - Review of Systems General: Reports: No Symptoms HEENT: Reports: No Symptoms Pulmonary: Reports: No Symptoms Cardiovascular: Reports: No Symptoms Gastrointestinal: Reports: No Symptoms Genitourinary: Reports: No Symptoms Musculoskeletal: Reports: No Symptoms Skin: Reports: No Symptoms Neurological: Reports: No Symptoms Psychiatric: Reports: No Symptoms Systems Review Comment:: C/O "severe" uterine cramping, intermittent, ibuprofen/acetaminophen therapy moderately effective - General Info Date of Service: 01/19/20 - Patient Data Vital Signs - Most Recent: Last Vital Signs Temp 96.0 F L 01/19/20 16:00 Pulse 57 L 01/19/20 16:00 Resp 16 01/19/20 16:00 BP 119/64 01/19/20 16:00 Pulse Ox 97 01/19/20 16:00 Weight - Most Recent: 230 lb 3 oz Lab Results - Last 24 Hours: Laboratory Results - last 24 hr 01/18/20 Range/Units 16:05 Blood Type A POSITIVE Antibody Screen NEGATIVE Med Orders - Current: Current Medications Acetaminophen (Tylenol Extra Strength) 500 mg PO Q4H PRN PRN Reason: Pain Acetaminophen (Tylenol Extra Strength) 1,000 mg PO Q4H PRN PRN Reason: Pain Benzocaine/Menthol (Dermoplast Pain Relief 20%-0.5% [place]) 78 gm TOP ASDIRECTED PRN PRN Reason: Perineal Comfort Measure Bisacodyl (Dulcolax) 10 mg RECTAL ONETIME PRN PRN Reason: Constipation Docusate Sodium (Colace) 100 mg PO BID PRN PRN Reason: Constipation Last Admin: 01/19/20 10:18 Dose: 100 mg Documented by: Emollient Ointment (Lansinoh Hpa) 0 gm TOP ASDIRECTED PRN PRN Reason: Sore Nipples Ibuprofen (Motrin) 400 mg PO Q4H PRN PRN Reason: Pain Ibuprofen (Motrin) 800 mg PO Q6H PRN PRN Reason: Pain Last Admin: 01/19/20 16:12 Dose: 800 mg Documented by: Oxycodone HCl (Oxycodone) 5 mg PO Q2H PRN PRN Reason: Pain Witch Che (Tucks) 1 pad TOP ASDIRECTED PRN PRN Reason: comfort care Discontinued Medications Butorphanol Tartrate (Stadol) 1 mg IVPUSH Q1H PRN PRN Reason: Pain Carboprost Tromethamine (Hemabate Ds) 250 mcg IM ASDIRECTED PRN PRN Reason: Post Hemorrhage Fentanyl (Sublimaze) Confirm Administered Dose 100 mcg .ROUTE .STK-MED ONE Stop: 01/18/20 20:24 Lactated Ringer's (Ringers, Lactated) 1,000 mls @ 150 mls/hr IV ASDIRECTED SHAVONNE Last Admin: 01/18/20 20:49 Dose: 150 mls/hr Documented by: Oxytocin/Sodium Chloride (Oxytocin 30 Unit/500 Ml-Ns) 30 unit in 500 mls @ 999 mls/hr IV TITRATE SHAVONNE Tranexamic Acid 1,000 mg/ (Sodium Chloride) 110 mls @ 660 mls/hr IV ONETIME PRN PRN Reason: Bleeding Oxytocin/Sodium Chloride (Oxytocin 30 Unit/500 Ml-Ns) 30 unit in 500 mls @ 2 mls/hr IV TITRATE SHAVONNE; Protocol Last Titration: 01/18/20 22:15 Dose: 4 munits/min, 4 mls/hr Documented by: Ropivacaine (Naropin 0.2%) Confirm Administered Dose 100 mls @ as directed .ROUTE .STK-MED ONE Stop: 01/18/20 20:23 Oxytocin/Sodium Chloride (Oxytocin 30 Unit/500 Ml-Ns) Confirm Administered Dose 30 unit in 500 mls @ as directed .ROUTE .STK-MED ONE Stop: 01/19/20 02:05 Lidocaine HCl (Xylocaine 1%) 50 ml INJECT ONETIME PRN PRN Reason: Laceration repair Methylergonovine Maleate (Methergine) 0.2 mg IM ASDIRECTED PRN PRN Reason: Post Hemorrhage Misoprostol (Cytotec) 200 mcg PO ONETIME PRN PRN Reason: Post Hemorrhage Nalbuphine HCl (Nubain) 10 mg IVPUSH Q1H PRN PRN Reason: Pain (severe 7-10) Ondansetron HCl (Zofran) 4 mg IVPUSH Q6H PRN PRN Reason: Nausea/Vomiting Sodium Chloride (Saline Flush) 10 ml FLUSH ASDIRECTED PRN PRN Reason: Keep Vein Open Sodium Chloride (Saline Flush) 2.5 ml FLUSH ASDIRECTED PRN PRN Reason: Keep Vein Open Sodium Chloride (Normal Saline) 10 ml IV ASDIRECTED PRN PRN Reason: IV Use Sterile Water (Sterile Water For Irrigation) 1,000 ml IRR ASDIRECTED PRN PRN Reason: delivery Terbutaline Sulfate (Brethine) 0.25 mg SUBCUT ASDIRECTED PRN PRN Reason: Tacysystole - Infant Interaction Infant Disposition, : in Room with Family Infant Interaction: Holding Infant Infant Feeding: Bottle Fed Support Person: Mother - Recovery Exam Fundal Tone: Firm Fundal Level: 1 Fingerbreadths Below Umbilicus Fundal Placement: Midline Lochia Amount: Small Lochia Color: Rubra/Red Perineum Description: Intact, Minimal Bruising/Swelling Episiotomy/Laceration: None Bladder Status: Voiding Urinary Elimination: Voided - Exam General: Alert, Oriented, Cooperative, No Acute Distress HEENT: Pupils Equal, Pupils Reactive, Mucous Membr. Moist/[place] Neck: Supple Lungs: Clear to Auscultation, Normal Respiratory Effort Cardiovascular: Regular Rate, Regular Rhythm GI/Abdominal Exam: Normal Bowel Sounds, Soft, Non-Tender, No Organomegaly, No Distention Extremities: Normal Inspection, Normal Range of Motion, Non-Tender, No Pedal Edema, Normal Capillary Refill Skin: Warm, Dry, Intact Neurological: No New Focal Deficit Psy/Mental Status: Alert, Normal Affect, Normal Mood - Problem List & Annotations (1) (spontaneous vaginal delivery) SNOMED Code(s): 577794889 Code(s): O80 - ENCOUNTER FOR FULL-TERM UNCOMPLICATED DELIVERY Status: Acute Priority: High Current Visit: Yes - Problem List Review Problem List Initiated/Reviewed/Updated: Yes - Plan Plan:: Johanna is a PPD0 S/P of viable NBM, meconium-stained fluid. A+, rubella immune, GBS negative. Patient reports she is independently ambulating, voiding, eating, and hydrating without problems. Small vaginal bleeding, no clots. Periuem intact. Patient bottle-feeding NBM without issue. Patient reports "severe" intermittent uterine cramping not alleviated well with ibuprofen/acetaminophen regimen. Continue routine plan of care, plan to D/C in am pending couplette status. Dr. Naranjo notified and agreeable to POC.
[2020-01-19 20:09] VITALS: BP 134/74; PULSE 60
--- NOTE | 2020-01-20 03:03 | PCM.DCSUM1 ---
Discharge Summary - Hospital Course Free Text/Narrative:: Johanna is a 29 yo PPD1 S/P to viable term NBM. A pos, RI, GBS neg. Hemodynamically stable, afebrile, pain well controlled. Ambulating, eating, hydrating, voiding independently and without difficulty. Bottle-feeding NBM well. Small rubra lochia, no clots, uterus firm U-1. Patient verbalizes desire to be discharged home today. Diagnosis: Stroke: No - Discharge Data Discharge Date: 01/20/20 Discharge Disposition: Home, Self-Care 01 Condition: Good - Discharge Diagnosis/Problem(s) (1) (spontaneous vaginal delivery) SNOMED Code(s): 762840541 ICD Code: O80 - ENCOUNTER FOR FULL-TERM UNCOMPLICATED DELIVERY Status: Acute Priority: High Current Visit: Yes - Patient Instructions Diet: Usual Diet as Tolerated, Regular Diet as Tolerated, Drink 8-10+ Glasses/Day Activity: As Tolerated, No Strenuous Activities Driving: May Drive Today Showering/Bathing: May Shower Showering/Bathing, Other: May utilize sitz baths for perineal comfort Notify Provider of: Fever, Increased Pain, Swelling and Redness, Drainage, Nausea and/or Vomiting - Discharge Plan *PRESCRIPTION DRUG MONITORING PROGRAM REVIEWED*: No *COPY OF PRESCRIPTION DRUG MONITORING REPORT IN PATIENT LEONEL: No Prescriptions/Med Rec: Ibuprofen [Motrin] 800 mg PO Q8H PRN #90 tablet PRN Reason: Pain Home Medications: Home Meds Albuterol [Ventolin HFA] 1 puff INH Q4H #1 inhaler 04/11/19 [Rx] Ibuprofen [Motrin] 800 mg PO Q8H PRN #90 tablet 01/20/20 [Rx] Oxygen Therapy Mode: Room Air Patient Handouts: Care After Vaginal Delivery Referrals: [facility] [Outside] Olga Leslie CNM, [facility] [Mid-] - 03/01/20 2:00 pm - Discharge Summary/Plan Comment DC Time >30 min.: No (May be discharged home now) - General Info Date of Service: 01/20/20 Admission Dx/Problem (Free Text: Patient Status Order with Admit Dx/Problem 01/18/20 15:40 Patient Status [ADT] Routine 01/18/20 17:44 Patient Status [ADT] Routine Admission Diagnosis/Problem Admission Diagnosis/Problem - planned 01/18/20 18:01 presenting with complaints of leaking fluid; amnisure positive; SVE 4 cm/90%/-3, soft, posterior per nurse report; A+, rubella immune, GBS negative; will admit for labor Functional Status: Reports: Pain Controlled Numeric/FACES Score: 0 - Review of Systems General: Reports: No Symptoms HEENT: Reports: No Symptoms Pulmonary: Reports: No Symptoms Cardiovascular: Reports: No Symptoms Gastrointestinal: Reports: No Symptoms Genitourinary: Reports: Other (Scant to small vaginal bleeding, no clots, no pain) Musculoskeletal: Reports: No Symptoms Skin: Reports: No Symptoms Neurological: Reports: No Symptoms Psychiatric: Reports: No Symptoms - Patient Data Vitals - Most Recent: Last Vital Signs Temp 96.3 F L 01/19/20 20:00 Pulse 60 01/19/20 20:00 Resp 20 01/19/20 20:00 BP 134/74 01/19/20 20:00 Pulse Ox 97 01/19/20 20:00 Weight - Most Recent: 230 lb 3 oz Med Orders - Current: Current Medications Acetaminophen (Tylenol Extra Strength) 500 mg PO Q4H PRN PRN Reason: Pain Last Admin: 01/19/20 20:37 Dose: 500 mg Documented by: Acetaminophen (Tylenol Extra Strength) 1,000 mg PO Q4H PRN PRN Reason: Pain Benzocaine/Menthol (Dermoplast Pain Relief 20%-0.5% [place]) 78 gm TOP ASDIRECTED PRN PRN Reason: Perineal Comfort Measure Bisacodyl (Dulcolax) 10 mg RECTAL ONETIME PRN PRN Reason: Constipation Docusate Sodium (Colace) 100 mg PO BID PRN PRN Reason: Constipation Last Admin: 01/19/20 10:18 Dose: 100 mg Documented by: Emollient Ointment (Lansinoh Hpa) 0 gm TOP ASDIRECTED PRN PRN Reason: Sore Nipples Ibuprofen (Motrin) 400 mg PO Q4H PRN PRN Reason: Pain Ibuprofen (Motrin) 800 mg PO Q6H PRN PRN Reason: Pain Last Admin: 01/19/20 16:12 Dose: 800 mg Documented by: Oxycodone HCl (Oxycodone) 5 mg PO Q2H PRN PRN Reason: Pain Witch Che (Tucks) 1 pad TOP ASDIRECTED PRN PRN Reason: comfort care Discontinued Medications Butorphanol Tartrate (Stadol) 1 mg IVPUSH Q1H PRN PRN Reason: Pain Carboprost Tromethamine (Hemabate Ds) 250 mcg IM ASDIRECTED PRN PRN Reason: Post Hemorrhage Fentanyl (Sublimaze) Confirm Administered Dose 100 mcg .ROUTE .STK-MED ONE Stop: 01/18/20 20:24 Lactated Ringer's (Ringers, Lactated) 1,000 mls @ 150 mls/hr IV ASDIRECTED SHAVONNE Last Admin: 01/18/20 20:49 Dose: 150 mls/hr Documented by: Oxytocin/Sodium Chloride (Oxytocin 30 Unit/500 Ml-Ns) 30 unit in 500 mls @ 999 mls/hr IV TITRATE SHAVONNE Tranexamic Acid 1,000 mg/ (Sodium Chloride) 110 mls @ 660 mls/hr IV ONETIME PRN PRN Reason: Bleeding Oxytocin/Sodium Chloride (Oxytocin 30 Unit/500 Ml-Ns) 30 unit in 500 mls @ 2 mls/hr IV TITRATE SHAVONNE; Protocol Last Titration: 01/18/20 22:15 Dose: 4 munits/min, 4 mls/hr Documented by: Ropivacaine (Naropin 0.2%) Confirm Administered Dose 100 mls @ as directed .ROUTE .STK-MED ONE Stop: 01/18/20 20:23 Oxytocin/Sodium Chloride (Oxytocin 30 Unit/500 Ml-Ns) Confirm Administered Dose 30 unit in 500 mls @ as directed .ROUTE .ST-MED ONE Stop: 01/19/20 02:05 Lidocaine HCl (Xylocaine 1%) 50 ml INJECT ONETIME PRN PRN Reason: Laceration repair Methylergonovine Maleate (Methergine) 0.2 mg IM ASDIRECTED PRN PRN Reason: Post Hemorrhage Misoprostol (Cytotec) 200 mcg PO ONETIME PRN PRN Reason: Post Hemorrhage Nalbuphine HCl (Nubain) 10 mg IVPUSH Q1H PRN PRN Reason: Pain (severe 7-10) Ondansetron HCl (Zofran) 4 mg IVPUSH Q6H PRN PRN Reason: Nausea/Vomiting Sodium Chloride (Saline Flush) 10 ml FLUSH ASDIRECTED PRN PRN Reason: Keep Vein Open Sodium Chloride (Saline Flush) 2.5 ml FLUSH ASDIRECTED PRN PRN Reason: Keep Vein Open Sodium Chloride (Normal Saline) 10 ml IV ASDIRECTED PRN PRN Reason: IV Use Sterile Water (Sterile Water For Irrigation) 1,000 ml IRR ASDIRECTED PRN PRN Reason: delivery Terbutaline Sulfate (Brethine) 0.25 mg SUBCUT ASDIRECTED PRN PRN Reason: Tacysystole - Exam General: Reports: Alert, Oriented, Cooperative, No Acute Distress HEENT: Reports: Pupils Equal, Pupils Reactive, Mucous Membr. Moist/[place] Neck: Reports: Supple Lungs: Reports: Clear to Auscultation, Normal Respiratory Effort Cardiovascular: Reports: Regular Rate, Regular Rhythm GI/Abdominal Exam: Normal Bowel Sounds, Soft, Non-Tender, No Organomegaly, No Distention (Female) Exam: Normal External Exam, Enlarged Uterus ( uterus, firm U-1), Vaginal Bleeding (Small rubra lochia, no clots) Rectal (Female) Exam: Deferred Back Exam: Reports: Normal Inspection, Full Range of Motion Extremities: Normal Inspection, Normal Range of Motion, Non-Tender, No Pedal Edema, Normal Capillary Refill Skin: Reports: Warm, Dry, Intact Wound/Incisions: Reports: Other (Perineum intact) Neurological: Reports: No New Focal Deficit Psy/Mental Status: Reports: Alert, Normal Affect, Normal Mood
== END 2020-01-20 03:34 | disposition home or self-care (01) | DRG 807 ==
LOC: MW.OB 01:04 → OBSVTOIN 01-19 01:04 → MW.OB 01-19 06:00
PROVIDERS: ADMIT Obstetrics & Gynecology; ATTEND Obstetrics & Gynecology
PROC: 10E0XZZ Delivery of Products of Conception, External Approach (ICD-10-PCS; principal; 2020-01-19)
PROC: 10907ZC Drainage of Amniotic Fluid, Therapeutic from Products of Conception, Via Natural or Artificial Opening (ICD-10-PCS; 2020-01-19)
PROC: 3E0R3BZ Introduction of Anesthetic Agent into Spinal Canal, Percutaneous Approach (ICD-10-PCS; 2020-01-19)
DX: O48.0 Post-term pregnancy (principal); Z37.0 Single live birth; O69.81X0 Labor and delivery complicated by cord around neck, without compression, not applicable or unspecified; Z3A.40 40 weeks gestation of pregnancy; O77.0 Labor and delivery complicated by meconium in amniotic fluid
CPT/HCPCS: 01967; 36415; 51702; 59025; 59409; 76805; 76805-26; 84112; 85027; 86592; 86593; 86850; 86900; 86901; A9270-GY; J2590; J7120

== ENCOUNTER 2020-07-21 20:10 | Emergency (ER) | payer MEDICAID ==
[2020-07-21] MEDS ORDERED: Sodium Chloride 0.9% 10 ML Syringe FLUSH PRN (20:21)
[2020-07-21] MEDS ORDERED: Sodium Chloride 0.9% 2.5 ML Syringe FLUSH PRN (20:21)
[2020-07-21] MEDS ORDERED: Ketorolac 30 MG/ML SDV IVPUSH ONE (20:52)
[2020-07-21] MEDS ORDERED: Ondansetron 4 MG/2 ML SDV IVPUSH ONE (20:52)
--- NOTE | 2020-07-21 21:04 | PCM.SN.2 ---
#1 Interpretation EKG Date: 07/21/20 Time: 21:03 Rhythm: NSR Rate (Beats/Min): 59 [place]: Normal P-Wave: Present QRS: Normal ST-T: Normal QT: Normal [place]/PQ Interval: 155 Comparison: NA - No Prior EKG
[2020-07-21 21:09] LABS: BLOOD UREA NITROGEN,BUN 10 mg/dL (7.0-18.0); CARBON DIOXIDE,CO2 26.2 mmol/L (21.0-32.0); CHLORIDE,CL 104 mmol/L (98-107); GLUCOSE RANDOM 96 mg/dL (74-106); LIPASE 95 U/L (73-393); POTASSIUM,K 3.7 mmol/L (3.5-5.1); SODIUM,NA 141 mmol/L (136-145)
[2020-07-21] MEDS ORDERED: Haloperidol Lactate 5 MG/ML SDV IM ONE (21:12)
[2020-07-21] MEDS ORDERED: diphenhydrAMINE 50 MG/ML SDV IVPUSH ONE (21:13)
--- NOTE | 2020-07-21 21:22 | EDM.PDOC ---
ED HPI GENERAL MEDICAL PROBLEM - General Chief Complaint: Abdominal Pain Stated Complaint: CHEST AND STOMACH PAIN Time Seen by Provider: 07/21/20 20:18 Source of Information: Reports: Patient History Limitations: Reports: No Limitations - History of Present Illness INITIAL COMMENTS - FREE TEXT/NARRATIVE: HISTORY AND PHYSICAL: History of present illness: Patient is a 30-year-old female who presents to the ED today with concern of midepigastric abdominal pain that radiates into her chest x2 to 3 hours. Patient states that she was driving when she began to have stomach discomfort, patient states that she became nauseous and had one episode of vomiting in her car. Patient states that her abdominal pain has continued and she continues to feel nauseous like she might vomit. Patient states that she has had her gallbladder removed 8 years ago but denies any other abdominal surgeries. Patient states that she does smoke cigarettes and smokes marijuana and is a daily marijuana user. Denies any alcohol use. States she has a history of anxiety but denies any other health history. Patient states that she started her menstrual cycle yesterday so does not believe that she is and her cycle has been normal for her. Patient denies any heavy vaginal bleeding. Patient denies fever, chills, shortness of breath, or cough. Denies headache, neck stiff ness, change in vision, syncope, or near syncope. Denies diarrhea, constipation, or dysuria. Has not noted any blood in urine or stool. Review of systems: As per history of present illness and below otherwise all systems reviewed and negative. Past medical history: As per history of present illness and as reviewed below otherwise noncontributory. Surgical history: As per history of present illness and as reviewed below otherwise noncontributory. Social history: See social history for further information Family history: As per history of present illness and as reviewed below otherwise noncontribu tory. Physical exam: General: Patient is alert, oriented, and in no acute distress. Patient laying on exam table, holding her legs up and crying. Vitals stable and reviewed by me. HEENT: Atraumatic, normocephalic, pupils equal and reactive bilaterally, negative for conjunctival pallor or scleral icterus, mucous membranes moist, TMs normal bilaterally, throat clear, neck supple, nontender, trachea midline. No drooling or trismus noted. No meningeal signs. No hot potato voice noted. Lungs: Clear to auscultation, breath sounds equal bilaterally, chest nontender. Heart: S1S2, regular rate and rhythm without overt murmur Abdomen: Soft, nondistended, nontender. Negative for masses or hepatosplenomegaly. Negative for costovertebral tenderness. Pelvis: Stable nontender. Genitourinary: Deferred. Rectal: Deferred. Skin: Intact, warm, dry. No lesions or rashes noted. Extremities: Atraumatic, negative for cords or calf pain. Neurovascular unremarkable. Neuro: Awake, alert, oriented. Cranial nerves II through XII unremarkable. Cerebellum unremarkable. Motor and sensory unremarkable throughout. Exam nonfocal. Notes: Upon reevaluation of patient, she is much more comfortable following therapeu tics today. She has not had any episodes of vomiting today in the ED and is able to tolerate p.o. intake. She remains vitally stable. Was given first dose of antibiotics due to the pharmacies being closed at this time. Will send patient home with stool collection supplies. Strict return precautions were thoroughly discussed with patient. Discussed importance for follow-up with a primary care provider. Voices understanding and is agreeable to plan of care. Denies any further questions or concerns at this time. Diagnostics: EKG, CBC, CMP, UA, Serum hcg, CXR, Trop, Abd/Pelvic w cont, lipase Therapeutics: Haldol, Benadryl Prescription: Cipro, Flagyl, Zofran Impression: Colitis Abdominal pain Plan: 1. Take medication as prescribed. You can alternate ibuprofen and Tylenol as directed for pain and discomfort. 2. Follow-up with a primary care provider as discussed. Return to the ED as needed and as discussed. 3. Will collection supplies have been provided to you to leave a sample at home. Once you are able to leave the sample, returns to ED for further lab diagnostics. Definitive disposition and diagnosis as appropriate pending reevaluation and review of above. bilat upper abdominal pain Pain Score (Numeric/FACES): 7 - Related Data Allergies Allergy/AdvReac Type Severity Reaction Status Date / Time No Known Allergies Allergy Verified 07/21/20 20:15 Home Meds: Home Meds Ciprofloxacin [Ciprofloxacin HCl] 500 mg PO BID 7 Days #14 tab 07/21/20 [Rx] Sertraline [Zoloft] 07/21/20 [History] metroNIDAZOLE [Flagyl] 500 mg PO Q8H 7 Days #21 tab 07/21/20 [Rx] Past Medical History - Past Health History Medical/Surgical History: Denies Medical/Surgical History HEENT History: Reports: Impaired Vision Other HEENT History: wears glasses Cardiovascular History: Reports: None Respiratory History: Reports: Pneumonia, Recurrent Gastrointestinal History: Reports: None Genitourinary History: Reports: None [employer] History: Reports: , Spontaneous Musculoskeletal History: Reports: None Neurological History: Reports: None Psychiatric History: Reports: Anxiety, Depression, PTSD Endocrine/Metabolic History: Reports: None Hematologic History: Reports: None Immunologic History: Reports: None Oncologic (Cancer) History: Reports: None Dermatologic History: Reports: Eczema - Infectious Disease History Infectious Disease History: Reports: Chicken Pox - Past Surgical History Head Surgeries/Procedures: Reports: None HEENT Surgical History: Reports: Adenoidectomy, Tonsillectomy Cardiovascular Surgical History: Reports: None Respiratory Surgical History: Reports: None GI Surgical History: Reports: Cholecystectomy Female Surgical History: Reports: None Endocrine Surgical History: Reports: None Neurological Surgical History: Reports: None Musculoskeletal Surgical History: Reports: None Oncologic Surgical History: Reports: None Dermatological Surgical History: Reports: None Social & Family History - Family History Family Medical History: No Pertinent Family History HEENT: Reports: None Cardiac: Reports: Afib Respiratory: Reports: None GI: Reports: None : Reports: None OBGYN: Reports: None Musculoskeletal: Reports: None Neurological: Reports: None Psychiatric: Reports: None Endocrine/Metabolic: Reports: Diabetes, type II Hematologic: Reports: None Immunologic: Reports: None Dermatologic: Reports: None Oncologic: Reports: None - Caffeine Use Caffeine Use: Reports: None - Recreational Drug Use Recreational Drug Type: Reports: Marijuana/Hashish ED ROS GENERAL - Review of Systems Review Of Systems: Comprehensive ROS is negative, except as noted in HPI. ED EXAM, GENERAL - Physical Exam Exam: See Below (see dictation) Course - Vital Signs Last Recorded V/S: Last Vital Signs Temp 97.3 F 07/21/20 20:15 Pulse 71 07/21/20 23:06 Resp 16 07/21/20 23:06 BP 129/69 07/21/20 23:06 Pulse Ox 98 07/21/20 23:06 - Orders/Labs/Meds Labs: Laboratory Tests 07/21/20 07/21/2020 Range/Units 20:29 20:29 20:29 WBC 9.70 (4.0-11.0) K/uL RBC 4.42 (4.30-5.90) M/uL Hgb 13.0 (12.0-16.0) g/dL Hct 39.9 (36.0-46.0) % MCV 90.3 (80.0-98.0) fL MCH 29.4 (27.0-32.0) pg MCHC 32.6 (31.0-37.0) g/dL RDW Std Deviation 46.4 (28.0-62.0) fl RDW Coeff of Adan 14 (11.0-15.0) % Plt Count 128 L (150-400) K/uL MPV 10.20 (7.40-12.00) fL Neut % (Auto) 60.3 (48.0-80.0) % Lymph % (Auto) 31.5 (16.0-40.0) % Clarke % (Auto) 6.2 (0.0-15.0) % Eos % (Auto) 1.9 (0.0-7.0) % Baso % (Auto) 0.1 (0.0-1.5) % Neut # (Auto) 5.9 H (1.4-5.7) K/uL Lymph # (Auto) 3.1 H (0.6-2.4) K/uL Clarke # (Auto) 0.6 (0.0-0.8) K/uL Eos # (Auto) 0.2 (0.0-0.7) K/uL Baso # (Auto) 0.0 (0.0-0.1) K/uL Nucleated RBC % 0.0 /100WBC Nucleated RBCs # 0 K/uL Sodium 141 (136-145) mmol/L Potassium 3.7 (3.5-5.1) mmol/L Chloride 104 (98-107) mmol/L Carbon Dioxide 26.2 (21.0-32.0) mmol/L BUN 10 (7.0-18.0) mg/dL Creatinine 0.7 (0.6-1.0) mg/dL Est Cr Clr Drug Dosing 108.01 mL/min Estimated GFR (MDRD) > 60.0 ml/min Glucose 96 (74-106) mg/dL Calcium 9.3 (8.5-10.1) mg/dL Total Bilirubin 0.4 (0.2-1.0) mg/dL AST 18 (15-37) IU/L ALT 20 (14-63) IU/L Alkaline Phosphatase 75 (46-116) U/L Troponin I (0.000-0.056) ng/mL Total Protein 7.3 (6.4-8.2) g/dL Albumin 3.9 (3.4-5.0) g/dL Globulin 3.4 (2.6-4.0) g/dL Albumin/Globulin Ratio 1.1 (0.9-1.6) Lipase 95 (73-393) U/L HCG, Qual NEGATIVE (NEG) Urine Color Urine Appearance Urine pH (5.0-8.0) Ur Specific Mena (1.001-1.035) Urine Protein (NEGATIVE) mg/dL Urine Glucose (UA) (NEGATIVE) mg/dL Urine Ketones (NEGATIVE) mg/dL Urine Occult Blood (NEGATIVE) Urine Nitrite (NEGATIVE) Urine Bilirubin (NEGATIVE) Urine Urobilinogen (<2.0) EU/dL Ur Leukocyte Esterase (NEGATIVE) Urine RBC (0-2/HPF) Urine WBC (0-5/HPF) Ur Epithelial Cells (NONE-FEW) Urine Bacteria (NEGATIVE) Urinalysis Comment 07/21/20 07/21/20 Range/Units 20:29 20:31 WBC (4.0-11.0) K/uL RBC (4.30-5.90) M/uL Hgb (12.0-16.0) g/dL Hct (36.0-46.0) % MCV (80.0-98.0) fL MCH (27.0-32.0) pg MCHC (31.0-37.0) g/dL RDW Std Deviation (28.0-62.0) fl RDW Coeff of Adan (11.0-15.0) % Plt Count (150-400) K/uL MPV (7.40-12.00) fL Neut % (Auto) (48.0-80.0) % Lymph % (Auto) (16.0-40.0) % Clarke % (Auto) (0.0-15.0) % Eos % (Auto) (0.0-7.0) % Baso % (Auto) (0.0-1.5) % Neut # (Auto) (1.4-5.7) K/uL Lymph # (Auto) (0.6-2.4) K/uL Clarke # (Auto) (0.0-0.8) K/uL Eos # (Auto) (0.0-0.7) K/uL Baso # (Auto) (0.0-0.1) K/uL Nucleated RBC % /100WBC Nucleated RBCs # K/uL Sodium (136-145) mmol/L Potassium (3.5-5.1) mmol/L Chloride (98-107) mmol/L Carbon Dioxide (21.0-32.0) mmol/L BUN (7.0-18.0) mg/dL Creatinine (0.6-1.0) mg/dL Est Cr Clr Drug Dosing mL/min Estimated GFR (MDRD) ml/min Glucose (74-106) mg/dL Calcium (8.5-10.1) mg/dL Total Bilirubin (0.2-1.0) mg/dL AST (15-37) IU/L ALT (14-63) IU/L Alkaline Phosphatase (46-116) U/L Troponin I < 0.050 (0.000-0.056) ng/mL Total Protein (6.4-8.2) g/dL Albumin (3.4-5.0) g/dL Globulin (2.6-4.0) g/dL Albumin/Globulin Ratio (0.9-1.6) Lipase (73-393) U/L HCG, Qual (NEG) Urine Color RED Urine Appearance BLOODY Urine pH 7.0 (5.0-8.0) Ur Specific Mena 1.025 (1.001-1.035) Urine Protein 30 H (NEGATIVE) mg/dL Urine Glucose (UA) NEGATIVE (NEGATIVE) mg/dL Urine Ketones NEGATIVE (NEGATIVE) mg/dL Urine Occult Blood LARGE H (NEGATIVE) Urine Nitrite POSITIVE H (NEGATIVE) Urine Bilirubin NEGATIVE (NEGATIVE) Urine Urobilinogen 0.2 (<2.0) EU/dL Ur Leukocyte Esterase NEGATIVE (NEGATIVE) Urine RBC TOO NUMEROUS TO CT H (0-2/HPF) Urine WBC 0-4 (0-5/HPF) Ur Epithelial Cells FEW (NONE-FEW) Urine Bacteria 3+ H (NEGATIVE) Urinalysis Comment Meds: Medications Discontinued Medications Generic Name Dose Route Start Last Admin Trade Name Freq PRN Reason Stop Dose Admin Ciprofloxacin 500 mg 07/21/20 22:25 07/21/20 22:37 Ciprofloxacin Hcl PO 07/21/20 22:26 500 mg ONETIME ONE Administration Diphenhydramine HCl 25 mg 07/21/20 21:13 07/21/20 21:28 Benadryl IVPUSH 07/21/20 21:14 25 mg ONETIME ONE Administration Haloperidol Lactate 5 mg 07/21/20 21:12 07/21/20 21:25 Haldol IM 07/21/20 21:13 5 mg ONETIME ONE Administration Iopamidol 100 ml 07/21/20 21:56 07/21/20 21:57 Isovue Multipack-370 (76%) IVPUSH 07/21/20 21:57 100 ml ONETIME STA Administration Ketorolac Tromethamine 30 mg 07/21/20 20:52 07/21/20 22:12 Toradol IVPUSH 07/21/20 20:53 Not Given ONETIME ONE Metronidazole 500 mg 07/21/20 22:26 07/21/20 22:36 Metronidazole PO 07/21/20 22:27 500 mg ONETIME ONE Administration Ondansetron HCl 4 mg 07/21/20 20:52 07/21/20 22:12 Zofran IVPUSH 07/21/20 20:53 Not Given ONETIME ONE Sodium Chloride 10 ml 07/21/20 20:21 Saline Flush FLUSH ASDIRECTED PRN Keep Vein Open Sodium Chloride 2.5 ml 07/21/20 20:21 Saline Flush FLUSH ASDIRECTED PRN Keep Vein Open Departure - Departure Time of Disposition: 22:28 Disposition: Home, Self-Care 01 Clinical Impression: Colitis Abdominal pain Qualifiers: Abdominal location: unspecified location Qualified Code(s): R10.9 - Unspecified abdominal pain - Discharge Information Prescriptions: Ciprofloxacin [Ciprofloxacin HCl] 500 mg PO BID 7 Days #14 tab metroNIDAZOLE [Flagyl] 500 mg PO Q8H 7 Days #21 tab Instructions: Colitis Referrals: Cheo Thurston MD [Primary Care Provider] - Forms: ED Department Discharge Additional Instructions: The following information is given to patients seen in the emergency department who are being discharged to home. This information is to outline your options for follow-up care. We provide all patients seen in our emergency department with a follow-up referral. The need for follow-up, as well as the timing and circumstances, are variable depending upon the specifics of your emergency department visit. If you don't have a primary care physician on staff, we will provide you with a referral. We always advise you to contact your personal physician following an emergency department visit to inform them of the circumstance of the visit and for follow-up with them and/or the need for any referrals to a consulting specialist. The emergency department will also refer you to a specialist when appropriate. This referral assures that you have the opportunity for follow-up care with a specialist. All of these measure are taken in an effort to provide you with optimal care, which includes your follow-up. Under all circumstances we always encourage you to contact your private physician who remains a resource for coordinating your care. When calling for follow-up care, please make the office aware that this follow-up is from your recent emergency room visit. If for any reason you are refused follow-up, please contact the [facility] at and asked to speak to the emergency department charge nurse. [facility] [address] [place] [id number] [address] [id number] 1. Take medication as prescribed. You can alternate ibuprofen and Tylenol as directed for pain and discomfort. 2. Follow-up with a primary care provider as discussed. Return to the ED as needed and as discussed. 3. Will collection supplies have been provided to you to leave a sample at home. Once you are able to leave the sample, returns to ED for further lab diagnostics. Sepsis Event Note (ED) - Evaluation Sepsis Screening Result: No Definite Risk
--- NOTE | 2020-07-21 21:37 | CR ---
Indication: Pain. Technique: AP portable view of the chest. Comparison: April 11, 2019. Findings: The heart is normal in size. The lungs are clear. No infiltrate, pleural effusion, or pneumothorax is identified. Impression: No acute cardiopulmonary process Dictated by Isi Lopez MD @ Jul 21 2020 9:35PM Signed by Dr. Isi Lopez @ Jul 21 2020 9:36PM
[2020-07-21] MEDS ORDERED: Iopamidol 755 MG/ML 500 ML Multipack Bottle IVPUSH STA (21:56)
--- NOTE | 2020-07-21 22:06 | CT ---
Indication: Pain. Technique: Multiple contiguous axial images were obtained from the lung bases through the symphysis pubis after the intravenous administration of 100 milliliters Isovue 370. Please note that all CT scans at this facility use dose modulation, iterative reconstruction, and/or weight-based dosing when appropriate to reduce radiation dose to as low as reasonably achievable. Comparison: None Findings: The lung bases are clear. The heart is normal in size. No pericardial effusions identified. The liver, spleen, pancreas, adrenals, and kidneys are normal. No intrahepatic biliary ductal dilatation is identified. No hydronephrosis is identified. In the pelvis, the urinary bladder is normal. The uterus is grossly normal. The small and large bowel are normal in caliber. A few normal sized lymph nodes are identified in the right lower quadrant, which can be seen with mesenteric lymphadenitis. The appendix is clearly seen and is normal in caliber. No inflammatory changes are identified in the right lower quadrant. Questionable thickening of the wall of the distal transverse colon and descending colon is identified, which can be seen with a nonspecific colitis. No free air or free fluid is identified within the abdomen or pelvis. The aorta is normal in caliber. No lytic or blastic lesions of the spine are identified. Impression: Thickening of the wall of the distal transverse colon and descending colon, which can be seen with a nonspecific colitis. No evidence of appendicitis. Postsurgical changes of a cholecystectomy. Please note that all CT scans at this facility use dose modulation, iterative reconstruction, and/or weight-based dosing when appropriate to reduce radiation dose to as low as reasonably achievable. Dictated by Isi Lopez MD @ Jul 21 2020 10:02PM Signed by Dr. Isi Lopez @ Jul 21 2020 10:05PM
[2020-07-21] MEDS ORDERED: Ciprofloxacin 500 MG Tab PO ONE (22:25)
[2020-07-21] MEDS ORDERED: metroNIDAZOLE 250 MG Tab PO ONE (22:26)
[2020-07-21 23:08] VITALS: BP 129/69; PULSE 71
== END 2020-07-21 23:00 | disposition home or self-care (01) ==
LOC: MW.ED 20:10
DX: K52.9 Noninfective gastroenteritis and colitis, unspecified (principal); F41.9 Anxiety disorder, unspecified; F32.9 Major depressive disorder, single episode, unspecified; Z79.899 Other long term (current) drug therapy
CPT/HCPCS: 36415; 71045; 74177; 80053; 81001; 83690; 84484; 84703; 85025; 87086; 87088; 87186; 93005; 96372; 96374; 99284; A9270; J1200; J1630; Q9967; 93010; 99283

== ENCOUNTER 2023-01-03 13:29 | Emergency (ER) | payer SELFPAY ==
[2023-01-03] MEDS ORDERED: Sodium Chloride 0.9% 2.5 ML Syringe FLUSH PRN (13:49)
[2023-01-03] MEDS ORDERED: Sodium Chloride 0.9% 10 ML Syringe FLUSH PRN (13:49)
[2023-01-03 14:11] LABS: APPEARANCE,URINE SLT CLOUDY; BILIRUBIN,URINE NEGATIVE (NEGATIVE); COLOR,URINE YELLOW; GLUCOSE,URINE 100 mg/dL (NEGATIVE); KETONES,URINE NEGATIVE (NEGATIVE); LEUKOCYTE ESTERASE,URINE NEGATIVE (NEGATIVE); NITRITE,URINE NEGATIVE (NEGATIVE); OCCULT BLOOD,URINE NEGATIVE (NEGATIVE); PH,URINE 6.5 (5.0-8.0); PROTEIN,URINE 100 mg/dL (NEGATIVE); UROBILINOGEN,URINE 0.2 EU/dL (<2.0)
[2023-01-03 14:17] LABS: BASOPHILS PERCENT AUTO 0.1 % (0.0-1.5); EOSINOPHILS ABSOLUTE AUTO 0.2 K/uL (0.0-0.7); EOSINOPHILS PERCENT AUTO 1.9 % (0.0-7.0); HEMATOCRIT 37.1 % (36.0-46.0); HEMOGLOBIN 12.2 g/dL (12.0-16.0); MEAN CORPUSCULAR HEMOGLOBIN 30.1 pg (27.0-32.0); MEAN CORPUSCULAR HGB CONC 32.9 g/dL (31.0-37.0); MEAN CORPUSCULAR VOLUME 91.6 fL (80.0-98.0); MONOCYTES ABSOLUTE AUTO 0.5 K/uL (0.0-0.8); MONOCYTES PERCENT AUTO 5.2 % (0.0-15.0); NEUTROPHILS ABSOLUTE AUTO 8.6 K/uL (1.4-5.7); NEUTROPHILS PERCENT AUTO 82.8 % (48.0-80.0); PLATELET COUNT,PLT 210 K/uL (150-400); RED BLOOD CELL COUNT 4.05 M/uL (4.30-5.90); WHITE BLOOD CELL COUNT,WBC 10.33 K/uL (4.0-11.0)
[2023-01-03 14:20] LABS: AMPHETAMINES SCREEN, URINE PRESUMPTIVE POSITIVE (CUTOFF=500); BARBITURATE SCREEN,URINE NEGATIVE (CUTOFF=200); BENZODIAZEPINES SCREEN,URINE NEGATIVE (CUTOFF=150); BUPRENORPHINE SCREEN,URINE NEGATIVE (CUTOFF=10); METHADONE SCREEN, URINE NEGATIVE (CUTOFF=200); METHAMPHETAMINES SCREEN, URINE PRESUMPTIVE POSITIVE (CUTOFF=500); OXYCODONE SCREEN,URINE NEGATIVE (CUT0FF=100); PCP SCREEN,URINE NEGATIVE (CUTOFF=25); PROPOXYPHENE SCREEN,URINE NEGATIVE (CUTOFF=300); THC SCREEN,URINE 20 NG/ML PRESUMPTIVE POSITIVE (CUTOFF=50)
[2023-01-03 14:22] LABS: RBC,URINE 0-2 (0-2/HPF); WBC,URINE 0-2 (0-5/HPF)
[2023-01-03 14:23] LABS: BACTERIA,URINE FEW (NEGATIVE); EPITHELIAL CELLS,URINE FEW (NONE-FEW); FINE GRANULAR CASTS,URINE FEW (NEGATIVE); MUCUS,URINE MANY (NONE-MOD); SQUAMOUS EPITHELIAL CELLS,UR FEW
[2023-01-03 14:34] LABS: A/G RATIO 1.3 (0.9-1.6); ALANINE AMINOTRANSFERASE,ALT 28 IU/L (14-63); ALBUMIN 3.8 g/dL (3.4-5.0); ALKALINE PHOSPHATASE 47 U/L (46-116); ASPARTATE AMNIOTRANSFERASE,AST 27 IU/L (15-37); BILIRUBIN TOTAL 0.3 mg/dL (0.2-1.0); BLOOD UREA NITROGEN,BUN 12 mg/dL (7.0-18.0); CALCIUM 8.4 mg/dL (8.5-10.1); CARBON DIOXIDE,CO2 23.6 mmol/L (21.0-32.0); CHLORIDE,CL 106 mmol/L (98-107); CREATININE 0.8 mg/dL (0.6-1.0); EST CRCL DRUG DOSING (CG) 92.76 mL/min; ESTIMATED GFR 99 mL/min (>60); ETHANOL BLOOD MEDICAL < 3.0 mg/dL; GLUCOSE RANDOM 246 mg/dL (74-106); POTASSIUM,K 3.5 mmol/L (3.5-5.1); PROTEIN TOTAL,TP 6.7 g/dL (6.4-8.2); SODIUM,NA 142 mmol/L (136-145)
[2023-01-03 15:35] VITALS: BP 120/82; PULSE 62
== END 2023-01-03 15:30 | disposition home or self-care (01) ==
LOC: MW.ED 13:29
DX: R40.4 Transient alteration of awareness (principal); F15.90 Other stimulant use, unspecified, uncomplicated; Z88.1 Allergy status to other antibiotic agents; Z91.040 Latex allergy status; Z72.0 Tobacco use
CPT/HCPCS: 36415; 71045; 80053; 80305; 80307; 81001; 84703; 85025; 93005; 99285; J3490

== ENCOUNTER 2024-08-02 21:36 | Emergency (ER) | payer MEDICAID ==
[2024-08-02] MEDS: Amoxicillin/Clavulanate K 875-125 MG Tab PO ONE (23:05)
[2024-08-02 23:17] VITALS: BP 156/88; PULSE 78
== END 2024-08-02 23:17 | disposition home or self-care (01) ==
LOC: MW.ED 21:36
DX: K04.7 Periapical abscess without sinus (principal); K02.9 Dental caries, unspecified; Z90.49 Acquired absence of other specified parts of digestive tract; Z88.1 Allergy status to other antibiotic agents; Z91.040 Latex allergy status
CPT/HCPCS: 81025; 96374; 99283; A9270; J1100